=== PATIENT | male | born 1925 | race Caucasian/White ===

== ENCOUNTER → 2016-07-20 | Outpatient (CLI) | payer MEDICARE, BC ==
[~2016-07-20] MED LIST: AMINOPHYLLINE INJ/PF 250 MG/10 ML SDV IV ONE; REGADENOSON INJ 0.4 MG/5 ML DISP.SYRIN IV ONE
--- NOTE | 2016-07-21 07:51 | RADIOLOGY REPORT ---
STRESS TEST REPORT PATIENT NAME: FADIA GRANDA ROOM#: DATE OF SERVICE: 07/20/16 AGE: 89Y ORDER#: [id number] REFERRING MD: DR. CHAVIRA PROCEDURE PERFORMED REST/STRESS SINGLE ISOTOPE CARDIOLITE SPECT IMAGING WITH IV LEXISCAN STRESS AND GATED SPECT IMAGING INDICATION Atrial fibrillation, assess for coronary artery disease. The patient also has dilated cardiomyopathy. CLINICAL HISTORY This is an 89 year old male with no known coronary artery disease has cardiac risk factors of hypertension, hypercholesterolemia, chronic atrial fibrillation. PROCEDURE The patient received IV Lexiscan of 0.4 mg infused over 10 seconds. The resting heart rate was 101 bpm with frequent PVCs including couplets. This increased to 123 bpm at end infusion and most of all the PVCs had disappeared with increased ventricular response after the IV Lexiscan. The resting blood pressure was 143/80 and increased to 144/78 at end infusion. The patient had no symptoms of chest pains, but did feel some increased shortness of breath, subsequently felt some tightness in the throat. He was given 100 mg IV Aminophylline five minutes later for relief of the throat tightness. Resting 12 lead EKG showed normal sinus rhythm with 101 bpm with frequent couplet PVCs and right axis deviation and nonspecific inferior ST changes. At end infusion, no increased ST changes were seen. Myocardial perfusion imaging was performed at rest 60 minutes following injection of 11.42 mCi Cardiolite. 10 seconds after the IV Lexiscan injection, the patient was injected with 35.5 mCi of Cardiolite and flushed. Gated post stress tomographic imaging was performed 60 minutes after stress. FINDINGS The overall quality of the study is good. The left ventricular cavity is noted to be enlarged on both the rest and stress studies. There is no evidence of transient ischemic dilatation of the left ventricle. TID ratio was 1.06. SPECT images showed no IV Lexiscan induced reversible ischemia. There was, however, a small area of severe fixed perfusion defect in the apical septal wall and the basal septal wall. The gated SPECT imaging showed diffuse hypokinesis of the entire left ventricle. The left ventricular ejection fraction was calculated to be 31%. SUMMARY OF FINDINGS/IMPRESSION: 1. MYOCARDIAL PERFUSION IMAGING IS ABNORMAL. 2. THERE ARE SMALL AREAS OF SEVERE FIXED PERFUSION DEFECTS IN THE APICAL SEPTAL WALL AND BASAL SEPTAL WALL WITH 3. NO REVERSIBLE ISCHEMIA. OVERALL, 4. LEFT VENTRICULAR SYSTOLIC FUNCTION IS ABNORMAL WITH 5. DIFFUSE HYPOKINESIS OF ALL LV SEGMENTS. THE LVEF WAS 31%. 6. NO PRIOR STUDY FOR COMPARISON. INTERPRETING PHYSICIAN: SHAMIR HERRERA M.D. /: ZAHRAUD TT: [id number] ID: [id number] /: [id number] TD: [id number] JOB: [id number] cc:Jemima SUBRAMANIAN [facility] > MTDD
== END ==
LOC: RAD 06:12
PROVIDERS: ATTEND Internal Medicine Clinical Cardiac Electrophysiology
DX: I48.2 Chronic atrial fibrillation (principal); I42.0 Dilated cardiomyopathy; E78.5 Hyperlipidemia, unspecified; I10 Essential (primary) hypertension; K57.91 Diverticulosis of intestine, part unspecified, without perforation or abscess with bleeding; J41.0 Simple chronic bronchitis
CPT/HCPCS: 93017; 78452; A9500; J2785; J0280; Q9969

== ENCOUNTER → 2017-10-18 | Outpatient (CLI) | payer MEDICARE, BC ==
--- NOTE | 2017-10-18 16:07 | RADIOLOGY REPORT (SQ) ---
EXAM DESCRIPTION: U/S RETROPERITON (RENAL/AORTA) COMPLETED DATE/TIME: 10/18/2017 12:01 pm REASON FOR STUDY: R94.4 ABNORMAL RESULTS OF KIDNEY FUNCTION STUDIES R94.4 ABNORMAL RESULTS OF KIDNE Y FUNCTION STUDIES COMPARISON: None. TECHNIQUE: Dynamic and static grayscale images acquired of the kidneys and bladder and recorded on P ACS. Additional selected color Doppler and spectral images recorded. LIMITATIONS: None. FINDINGS: RIGHT KIDNEY: 9.1 cm in length. Normal echogenicity. No solid or suspicious masses. Small renal cyst is identified measuring 2.3 x 1.8 x 2.1 cm. No hydronephrosis. No calcifications. LEFT KIDNEY: 9.5 cm in length. Normal echogenicity. No solid or suspicious masses. Small renal cyst is identified measuring 1.5 x 1.6 x 1.2 cm. No hydronephrosis. No calcifications. BLADDER: There is some prominence of the prostate gland with a prostatic impression on the bladder ba se. OTHER FINDINGS: No other significant finding. IMPRESSION: No significant renal abnormalities were identified. Other findings as noted above TECHNICAL DOCUMENTATION: JOB ID: [id number] [employer]- All Rights Reserved Reading location - IP/workstation name: [email or web address]
== END ==
LOC: RAD 13:34
PROVIDERS: ATTEND Internal Medicine
DX: R94.4 Abnormal results of kidney function studies (principal)
CPT/HCPCS: 76770